=== PATIENT | female | born 1975 | race Caucasian/White ===

== ENCOUNTER → 2018-11-25 | Outpatient (CLI) | payer OTHER ==
--- NOTE | 2018-11-26 08:39 | XR ---
Left hip HISTORY: Left hip pain 2 views of the left hip Bone mineralization, joint spaces and alignment are maintained. Small metallic density measuring 4 x 1mm present within the pelvis, there is also a focal calcification which are indeterminate. No fractu re or dislocation. IMPRESSION: Normal left hip.
== END | disposition home or self-care (01) ==
LOC: RADXRYALE 16:36
PROVIDERS: ATTEND Physician Assistant Medical
DX: M25.552 Pain in left hip (principal)
CPT/HCPCS: 73502

== ENCOUNTER → 2019-12-31 | Outpatient (CLI) | payer BC ==
--- NOTE | 2019-12-31 16:13 | MR ---
MRI CERVICAL SPINE: CLINICAL HISTORY: Headache. Neck pain. Cervical region radiculopathy per order. TECHNIQUE: Multiplanar, multisequence imaging of the cervical spine is performed without IV contrast. COMPARISON: None. FINDINGS: Some motion artifact degradation is present making evaluation slightly suboptimal. Sagittal images of the cervical spine show the craniocervical junction to appear within normal limits. The c ervical and upper thoracic spinal cord is normal in course, caliber, and signal. Vertebral alignment is anatomic. The vertebral body and intravertebral disk heights are normal. The bone marrow signal intensity is within normal limits. Axial images show C2-C3 and C3-C4 levels to appear within normal limits. Axial images at C4-C5 level show focal right foraminal disc protrusion sagittal image 9 and axial candida ge 28 causing mild right-sided neural foraminal narrowing. Axial images at C5-C6, C6-C7, and C7-T1 levels are within normal limits. IMPRESSION: Small eccentric disc herniation right C4-C5 level otherwise unremarkable study.
== END | disposition home or self-care (01) ==
LOC: RADMRIMAIN 14:54
PROVIDERS: ATTEND Physician Assistant Medical
DX: M50.121 Cervical disc disorder at C4-C5 level with radiculopathy (principal)
CPT/HCPCS: 72141

== ENCOUNTER → 2022-07-18 | Outpatient (CLI) | payer BC ==
--- NOTE | 2022-07-19 09:12 | MM ---
Reason for Exam: Screening (asymptomatic). Baseline mammogram. Patient History: Menarche at age 15. First Full-Term at age 24. Left ovary removed at age 32. Right ovary removed at age 32. Hysterectomy at age 32. Risk Values: Leticia 5 year model risk: 0.7%. NCI Lifetime model risk: 7.9%. Prior Study Comparison: Patient's first Mammogram. Tissue Density: The breast tissue is heterogeneously dense. This may lower the sensitivity of mammography. Findings: Analyzed By CAD. There is no suspicious group of microcalcifications or suspicious mass in either breast. Overall Assessment: Negative, BI-RAD 1 Management: Screening Mammogram of both breasts in 1 year. . Patient should continue monthly self-breast exams. A clinical breast exam by your physician is recommended on an annual basis. This exam should not preclude additional follow-up of suspicious palpable abnormalities. Note on Leticia scores and lifetime risk: 1. A Leticia score greater than 3% is considered moderate risk. If this is the case, consider specialist referral to assess eligibility for a risk reducing agent. 2. If overall lifetime risk for the development of breast cancer is 20% or higher, the patient may qualify for future screening with alternating mammogram and breast MRI. Electronically signed and approved by: Mario Medellin M.D.
== END | disposition home or self-care (01) ==
LOC: RADMAMWWP 07:25
PROVIDERS: ATTEND Family Medicine
DX: Z12.31 Encounter for screening mammogram for malignant neoplasm of breast (principal)
CPT/HCPCS: 77063; 77067

== ENCOUNTER → 2022-09-18 | Outpatient (CLI) | payer BC ==
--- NOTE | 2022-09-18 14:53 | XR ---
EXAMINATION TYPE: XR Hip Complete RT DATE OF EXAM: 09/18/2022 COMPARISON: NONE HISTORY: Pain TECHNIQUE: 2 views submitted FINDINGS: There is no evidence of erosive change or acute fracture. Diffuse osteopenia with soft tissue ossific ations are seen. There is a surgical clip in the pelvis and vascular phlebolith. There is a benign cy st within a right femoral IMPRESSION: 1. No evidence of acute fracture or dislocation. 2. Mild diffuse osteopenia. Mild hypertrophic changes of the acetabulum can be associated with femora l acetabular impingement.
== END | disposition home or self-care (01) ==
LOC: RADXRYALE 14:39
PROVIDERS: ATTEND Physician Assistant Medical
DX: M85.851 Other specified disorders of bone density and structure, right thigh (principal); M25.851 Other specified joint disorders, right hip
CPT/HCPCS: 73502